=== PATIENT | female | born 1930 | race Caucasian/White ===

== ENCOUNTER 2017-09-24 12:21 | Emergency (ER) | payer OTHER, MEDICARE ==
[~2017-09-24] VITALS: Ht 172.7 cm; Wt 70.3 kg
[~2017-09-24 12:21] MED LIST: ASPIRIN81 M4 PO; ATORVASTATIN CA10 M1 PO; CLONAZEPAM0.5 M2 PO; CO Q-10200 MG PO; ESCITALOPRAM OX10 MG PO; ESTRACE42.5 GM VG; LEVOTHYROXINE75 MCG PO; LIDODERM1 EACH EXT; LOMOTIL 0.025 M1 TAB PO; LOVENOX40 MG/0.1 SC; MORPHINE S10 MG/1 M1 IV; OMEGA 3 1,0001 EACH PO; ONE DAILY FOR1 EACH PO; PERCOCET 7.5-31 EACH PO; RESVERATROL100 MG PO; SUPER B WITH V1 EACH PO; TRAZODONE HCL50 M1 PO; TYLENOL325 M1 PO; VITAMIN C500 M6 PO
[2017-09-24 12:29] VITALS: BP 133/81
--- NOTE | 2017-09-24 13:05 | ED MVC/FALL/TRAUMA COMPLAINT ---
History of Present Illness General Chief Complaint: Fall Stated Complaint: S/P TRIP AND FALL GOETZ R/L KNEE AND BACK PAIN Source: patient Exam Limitations: no limitations Vital Signs & Intake/Output Vital Signs & Intake/Output Vital Signs Date Time Temp Pulse Resp B/P B/P Pulse O2 O2 Flow FiO2 Mean Ox Delivery Rate 09/24 1312 97 09/24 1229 98.6 70 18 133/81 98 Room Air Allergies Coded Allergies: NSAIDS (Non-Steroidal Anti-Inflamma (UNKNOWN 01/21/17) Sulfa (Sulfonamide Antibiotics) (WEAKNESS 01/21/17) phenytoin (SWELLING TONGUE 01/21/17) morphine (Intermediate, DELIRIUM 01/24/17) ciprofloxacin (From CIPRO) (DIARRHEA 01/21/17) nitrofurantoin (DIARRHEA 01/21/17) Triage Note: 87 YO FEMALE TO TRIAGE FOR EVAL OF TRIP AND FALL 2 DAYS AGO. STATES FELL DOWN A COUPLE STEPS HITTING HEAD. PAIN TO BIALTERAL KNEES, R HIP, R WRIST, LOWER BACK. Triage Nurses Notes Reviewed? yes Onset: Abrupt Duration: day(s): (2), constant Timing: recent history Severity: moderate, severe Injuries/Fall Location: head, upper extremity, back, pelvis, lower extremity Method of Injury: fall Loss of Consciousness: no loss of consciousness HPI: 87-year-old female comes into the emergency room for further evaluation after falling 2 days ago on Father's Day. Patient was walking down the steps on the deck and she slipped and she came down on her left side and hit her head. She has pain to her head right wrist her left hip low back and bilateral knees. She is able to ambulate. (Se Vitale) Reconcile Medications Ascorbate Calcium (Vitamin C) 500 MG TABLET 1 TAB PO DAILY VITAMIN SUPPORT ( Reported) Aspirin (Aspirin*) 81 MG TAB.CHEW 1 TAB PO DAILY HEART HEALTH (Reported) Atorvastatin Calcium 10 MG TABLET 1 TAB PO DAILY CHOLESTEROL (Reported) B Complex With Vitamin C (Super B With Vit C) 1 EACH CAPSULE 1 CAP PO DAILY VITAMIN SUPPORT (Reported) Clonazepam 0.5 MG TABLET 1 TAB PO BID ANXIETY (Reported) Enoxaparin Sodium (Lovenox) 40 MG/0.4 ML SYRINGE 40 MG SC DAILY DVT ppx Escitalopram Oxalate 10 MG TABLET 1 TAB PO DAILY MENTAL HEALTH (Reported) Estradiol (Estrace) 0.01 % CREAM.APPL 1 GM VG 2XW HORMONE (Reported) Folic Acid/Mv,Fe,Other Min (One Daily For Women Tablet) 0.4 MG-18 MG TABLET 1 TAB PO DAILY VITAMIN SUPPORT (Reported) Levothyroxine Sodium 75 MCG TABLET 1 TAB PO DAILY AC THYROID (Reported) Lidocaine (Lidoderm) 5 % ADH..PATCH 1 PAT EXT DAILY PAIN CONTROL [place]-3 Fatty Acids/Fish Oil ([place] 3 1,000 MG Softgel) 300 MG-1,000 MG CAPSULE 1 CAP PO DAILY SUPPLEMENT (Reported) Oxycodone HCl/Acetaminophen (Percocet 7.5-325 MG Tablet) 7.5 MG-325 MG TABLET 1 TAB PO 4 TIMES/DAY PRN PAIN SCALE 7-10 (SEVERE) Resveratrol 100 MG CAPSULE 1 CAP PO DAILY SUPPLEMENT (Reported) Tramadol HCl 50 MG TABLET 1 TAB PO BIDP PRN PAIN Trazodone HCl 50 MG TABLET 1 TAB PO QPM SLEEP (Reported) Ubidecarenone (Co Q-10) 200 MG CAPSULE 1 CAP PO DAILY SUPPLEMENT (Reported) (Marnie NGUYEN,Marvel Cabrera) Past History Travel History Traveled to [place] past 21 day No Medical History Any Pertinent Medical History? see below for history Cardiovascular: hyperlipidemia Psychiatric: depression, insomnia Endocrine: hypothyroidism History of MRSA: No History of VRE: No History of CDIFF: No Influenza Vaccine: 01/06/17 Surgical History Surgical History: non-contributory Psychosocial History Who do you live with Patient/Self What is your primary language Georgian Tobacco Use: Never used Family History Hx Contributory? No (Se Vitale) Review of Systems Review of Systems Constitutional: Reports: no symptoms. Eyes: Reports: no symptoms. Ears, Nose, Throat, Mouth: Reports: no symptoms. Respiratory: Reports: no symptoms. Cardiovascular: Reports: no symptoms. Gastrointestinal/Abdominal: Reports: no symptoms. Genitourinary: Reports: no symptoms. Musculoskeletal: Reports: see HPI. Skin: Reports: no symptoms. Neurological/Psychological: Reports: no symptoms. All Other Systems: Reviewed and Negative (Se Vitale) Physical Exam Physical Exam General Appearance: alert, awake, mild distress Head: atraumatic Eyes: Bilateral: normal appearance. Ears, Nose, Throat, Mouth: hearing grossly normal, moist mucous membrane Neck: normal inspection, no midline tenderness Respiratory: no respiratory distress Back: vertebral tenderness, decreased range of motion Extremities: limited range of motion, bruising and swelling to the knees bilaterally, limited range of motion, bruising to her right wrist, limited range of motion, Neurologic/Psych: awake, alert, oriented x 3 Skin: intact, ecchymosis Core Measures ACS in differential dx? No CVA/TIA Diagnosis No Sepsis Present: No Sepsis Focused Exam Completed? No (Se Vitale) Progress Differential Diagnosis: abd injury, C/T/L spine injury, ext injury, ICH, pelvis injury, pnemothorax, spinal cord injury Plan of Care: Orders Procedure Date/time Status XRY-WRIST COMPLETE-RIGHT 09/24 1232 Active XRY-AP PELVIS 09/24 1232 Active XRY-LUMBOSACRAL SPINE 4 VIEWS 09/24 1232 Active XRY-KNEE COMPLETE RIGHT 09/24 1232 Active XRY-KNEE COMPLETE LEFT 09/24 1232 Active Comments: 09/24/2017 2:21:10 PM Patient was seen in triage initially. Patient was THEN evaluated in the [facility] a because she wanted to sign out AMA.. She was going to be brought back to a room to be evaluated but the patient's daughter had called and wanted the patient to be signed out so she could take her to [place] because of where she works there. All the imaging such as CT scan and x-rays had been ordered on the patient and was in the process of about to be done but the patient declined due to her daughter wanting her to go to [facility]. She signed out AGAINST MEDICAL ADVICE. She is alert and oriented. I explained to her that I cannot rule out any type of life-threatening conditions and that she should go directly to the emergency room at [facility] for further evaluation. Dr. Dye was made aware. Physical exam was limited secondary to the fact that the patient was in the hallway. (Se Vitale) Departure Departure Disposition: LEFT AGAINST MEDICAL ADVICE Condition: Stable Clinical Impression Primary Impression: Head injury Secondary Impressions: Back pain, Bilateral knee pain, Hip pain, Right wrist pain Referrals: Maximiliano Hutson MD (PCP/Family) Additional Instructions: Your signing out AGAINST MEDICAL ADVICE. Cannot rule out any type of bleeding internally or broken bones. It is important you go directly to [facility] for further imaging due to the fact that you have declined care here at [facility] in the emergency room. Can't rule out any type of life-threatening conditions without further evaluation. You understand everything has been explained to you. Please go over all results of today's visit with your primary care doctor. Contact your primary care doctor to let them know you were here in the emergency room. There may be nonspecific findings which may not be related to your visit today here in the emergency room but may require further evaluation and chronic monitoring by your primary care doctor. If you had a laceration today the chance of foreign body always remains. You should follow-up with your primary care doctor for recheck in 3-5 days for a wound check. If you had an x-ray done there is a chance that a fracture could have been missed on initial read and you should follow-up with your primary care doctor for repeat x-rays if symptoms persist. If your blood pressure was elevated here in the emergency room please have rechecked by [facility] primary care doctor within the next 48. If you were prescribed a narcotic here in the emergency room or any type of controlled substances you're not allowed to drive while taking this medication or operate any type of heavy machinery. Narcotics can make you feel lightheaded dizziness nausea and can cause constipation. 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 Thank you for choosing [facility] emergency room. Please return to the emergency room immediately if you have any other concerns worsening of symptoms. Departure Forms: Customer Survey General Discharge Information (Se Vitale) PA/VEHICLE WASHER Co-Sign Statement Statement: ED Attending supervision documentation- [X] I saw and evaluated the patient. I have also reviewed all the pertinent lab results and diagnostic results. I agree with the findings and the plan of care as documented in the PA's/VEHICLE WASHER's documentation. Patient presents for evaluation of injury sustained status post fall. Unfortunately patient left AGAINST MEDICAL ADVICE prior to my seeing her. [] I have reviewed the ED Record and agree with the PA's/VEHICLE WASHER's documentation. [] Additions or exceptions (if any) to the PAs/VEHICLE WASHER's note and plan are summarized below: [] (Marnie NGUYEN,Marvel Cabrera)
[2017-09-25] MEDS ORDERED: TRAMADOL HCL50 M1 PO (12:03)
== END 2017-09-24 13:13 | disposition left against medical advice (07) ==
LOC: ERH 12:21
DX: S09.90XA Unspecified injury of head, initial encounter (principal); M54.5 Low back pain; M25.561 Pain in right knee; M25.562 Pain in left knee; M25.551 Pain in right hip; M25.531 Pain in right wrist; W10.9XXA Fall (on) (from) unspecified stairs and steps, initial encounter